=== PATIENT | female | born 1985 | race Caucasian/White ===

== ENCOUNTER 2021-07-09 08:36 | Emergency (ER) | payer OTHER ==
[~2021-07-09] VITALS: Ht 167.6 cm; Wt 73.5 kg
[2021-07-09 08:56] VITALS: BP 120/86
--- NOTE | 2021-07-09 10:10 | NUR ---
35 y/o F BIB self from home with c/c UTI symptoms. Patient A&Ox4, ambulatory, states urinary urgency, dysuria, pelvic pain x 6 days. Patient reports 8/10, sharp, cramp, intermittent suprapubic region that radiates to low back. Patient reports 2 nights of fever of 102.6 relieved with Ibuprofen 600mg. Patient also states chest pressrue that began Thursday night, described as tight/heavy without pain. States completed last Keflex dose last night. UA collected. Bed locked in lowest position, side rails x 1, call light in reach. PMH/Sx/Meds: Denies; "familial history of maternal kidney disease" NKA
--- NOTE | 2021-07-09 10:20 | NUR ---
Patient ambulated to bed 06 with steady/even gait.
--- NOTE | 2021-07-09 10:35 | NUR ---
UA, Influenza, annie swabs collected and handed to CPT Deepthi.
[2021-07-09 11:27] LABS: APPEARANCE,URINE CLEAR (CLEAR); BILIRUBIN,URINE NEGATIVE (NEGATIVE); BLOOD, URINE TRACE-I (NEGATIVE); COLOR,URINE YELLOW (YELLOW); LEUKOCYTE ESTERASE ,URINE NEGATIVE (NEGATIVE); NITRITE, URINE NEGATIVE (NEGATIVE); PH,URINE 5.5 (5.0-9.0); UGLUCOSE NEGATIVE (NEGATIVE)
[2021-07-09] MEDS ORDERED: PYR100 PO (11:49)
--- NOTE | 2021-07-09 12:00 | NUR ---
Patient discharged with v/s stable. Written and verbal after care instructions given and explained. Patient alert, oriented and verbalized understanding of instructions. Ambulatory with steady gait. All questions addressed prior to discharge. ID band removed. Patient advised to follow up with PMD. Rx of Pyridium given. Patient educated on indication of medication including possible reaction and side effects. Opportunity to ask questions provided and answered.
== END 2021-07-09 12:00 | disposition home or self-care (01) ==
LOC: MED 08:36
DX: R30.0 Dysuria (principal); B34.9 Viral infection, unspecified; Z20.822 Contact with and (suspected) exposure to COVID-19; R19.7 Diarrhea, unspecified; Z79.899 Other long term (current) drug therapy
CPT/HCPCS: 81003; 81025; 87804; 99283; U0003